=== PATIENT | male | born 1975 | race Caucasian/White ===

== ENCOUNTER 2018-06-09 00:51 | Emergency (ER) | payer OTHER ==
[~2018-06-09] VITALS: Ht 175.3 cm; Wt 77.3 kg
[~2018-06-09 00:51] MED LIST: NO HOME MEDS
[2018-06-09] MEDS ORDERED: TETanus/Pertussis (Acell)/Diphther VAC/PF (Tdap-Adult) 0.5ml syringe IM ONE (01:00)
[2018-06-09] MEDS ORDERED: normal saline 1000ML IV soln IV ONE (01:00)
[2018-06-09] MEDS ORDERED: bacitracin 15gm ointment TP ONE (01:00)
[2018-06-09] MEDS ORDERED: vancomycin/NS 1 GM ADD-VANTAGE 250 ML IV ONE (01:00)
[2018-06-09] MEDS ORDERED: piperacillin/tazo 3.375gm/50ml 50 ML IV ONE (01:00)
[2018-06-09] MEDS ORDERED: iohexol 300mg/ml 100ml inj. ONE (01:06)
[2018-06-09 01:58] LABS: ALANINE AMINOTRANSFERASE 20 U/L (12-78); ALBUMIN 3.1 G/DL (3.4-5.0); ALBUMIN/GLOBULIN RATIO 0.7 (1.1-1.5); ALKALINE PHOSPHATASE 120 IU/L (46-116); ANION GAP 7 (8-16); ASPARTATE AMINO TRANSFERASE 23 U/L (10-37); BILIRUBIN,TOTAL 0.4 MG/DL (0.1-1.0); BLOOD UREA NITROGEN 12 MG/DL (7-18); BUN/CREATININE RATIO 13.6 (5.4-32.0); CALCIUM 8.8 MG/DL (8.5-10.1); CHLORIDE 100 MMOL/L (99-107); CREATININE 0.88 MG/DL (0.60-1.10); GLUCOSE 128 MG/DL (70-104); MAGNESIUM 1.9 MG/DL (1.5-2.4); POTASSIUM 3.9 MMOL/L (3.5-5.1); SODIUM 135 MMOL/L (135-145); TOTAL CARBON DIOXIDE 27.6 MMOL/L (24-32); TOTAL PROTEIN 7.3 G/DL (6.4-8.2); eGFR > 90 ML/MIN
[2018-06-09 02:12] LABS: BASOPHILS % (AUTO) 0 % (0-1); EOSINOPHILS # (AUTO) 0.1 X10'3 (0-0.9); EOSINOPHILS % (AUTO) 0.3 % (0-6); HEMATOCRIT 37.9 % (42.0-52.0); HEMOGLOBIN 12.9 g/dl (14.0-17.9); LYMPHOCYTES # (AUTO) 1.8 X10'3 (1.1-4.8); LYMPHOCYTES % (AUTO) 11.1 % (21-51); MEAN CORPUSCULAR HEMOGLOBIN 29.8 PG (27.0-31.0); MEAN CORPUSCULAR HGB CONC 34.1 % (33.0-36.5); MEAN CORPUSCULAR VOLUME 87.4 FL (78-98); MEAN PLATELET VOLUME 9.6 FL (7.4-10.4); MONOCYTES # (AUTO) 1.1 X10'3 (0-0.9); MONOCYTES % (AUTO) 6.5 % (2-12); NEUTROPHILS # (AUTO) 13.6 X10'3 (1.8-7.7); NEUTROPHILS % (AUTO) 82.1 % (42-75); PLATELET COUNT 300 X10'3 (140-440); RED BLOOD COUNT 4.34 X10'6 (4.70-6.10); WHITE BLOOD COUNT 16.5 X10'3 (4.5-11.0)
[2018-06-09 02:38] VITALS: BP 122/70
[2018-06-09] MEDS ORDERED: normal saline 1000ml 1,000 ML IV SCH (02:39)
[2018-06-09] MEDS ORDERED: bisacodyl 10mg suppository rectal RC PRN (02:40)
[2018-06-09] MEDS ORDERED: ondansetron/PF 4mg/2ml inj IV PRN (02:40)
[2018-06-09] MEDS ORDERED: morphine 2 MG/ML inj. syringe IV PRN ×2 (02:40)
[2018-06-09] MEDS ORDERED: magnesium hydroxide 30ml (MOM) UD suspension PO PRN (02:40)
[2018-06-09] MEDS ORDERED: mag hydrox/Alum hydrox/simeth 30ml oral suspension PO PRN (02:40)
[2018-06-09] MEDS ORDERED: diphenhydrAMINE 25mg capsule PO PRN (02:40)
[2018-06-09] MEDS ORDERED: diphenhydrAMINE 50 mg/ml inj IV PRN (02:40)
[2018-06-09] MEDS ORDERED: metoclopramide 5 mg/ml inj IV PRN (02:40)
[2018-06-09 03:13] LABS: HEMOGLOBIN A1C 5.2 % (4.5-6.2)
[2018-06-09 03:22] LABS: PHOSPHORUS 2.6 MG/DL (2.3-4.5)
[2018-06-09 03:28] LABS: URINE AMPHETAMINE SCREEN POSITIVE (Neg); URINE BARBITUATE SCREEN NEGATIVE (Neg); URINE BENZODIAZEPINES SCREEN NEGATIVE (Neg); URINE CANNABINOID SCREEN POSITIVE (Neg); URINE COCAINE SCREEN NEGATIVE (Neg); URINE METHADONE SCREEN NEGATIVE (Neg); URINE OPIATE SCREEN POSITIVE (Neg); URINE PHENCYCLIDINE SCREEN NEGATIVE (Neg)
[2018-06-09 03:30] LABS: CLARITY,URINE CLEAR (Clear); COLOR,URINE YELLOW (Yellow); GLUCOSE, URINE NEGATIVE (Neg); KETONES,URINE NEGATIVE (Neg); LEUKOCYTE ESTERASE ,URINE NEGATIVE (Neg); NITRITES, URINE NEGATIVE (Neg); OCCULT BLOOD,URINE NEGATIVE (Neg); PH,URINE 6.5 (4.8-8.0); PROTEIN,URINE NEGATIVE (Neg); UA COLLECTION TYPE CLN CATCH MIDSTREAM; UROBILINOGEN,URINE 0.2 E.U/dL (0.2-1.0)
[2018-06-09] MEDS ORDERED: pantoprazole 40mg Tablet.DR PO SCH (07:30)
[2018-06-09] MEDS ORDERED: piperacillin/tazo 3.375gm/50ml 50 ML IV SCH (08:00)
[2018-06-09] MEDS ORDERED: vancomycin/NS 1 GM ADD-VANTAGE 250 ML IV SCH (08:00)
[2018-06-09] MEDS ORDERED: docusate sod 100mg capsule PO SCH (08:00)
[2018-06-09] MEDS ORDERED: temazepam 15mg capsule PO PRN (21:00)
== END 2018-06-09 03:39 | disposition left against medical advice (07) ==
LOC: ER 00:52 → UNDOADMIN 02:39 → ED HOLD 02:39 → UNDODISIN 03:49
DX: L03.114 Cellulitis of left upper limb (principal); F19.10 Other psychoactive substance abuse, uncomplicated; F12.90 Cannabis use, unspecified, uncomplicated; F11.90 Opioid use, unspecified, uncomplicated; Z86.69 Personal history of other diseases of the nervous system and sense organs; Z86.14 Personal history of Methicillin resistant Staphylococcus aureus infection; Z88.6 Allergy status to analgesic agent; Z88.5 Allergy status to narcotic agent
CPT/HCPCS: 36415; 73201; 80053; 80305; 81003; 83036; 83605; 83735; 83880; 84100; 84145; 84443; 85025; 87040; 90471; 90715; 93005; 96365; 96368; 99285; A6223; A6255; A6449; J2543; J3370; J7030; Q9967